=== PATIENT | male | born 1960 | race Caucasian/White ===

== ENCOUNTER 2020-08-20 08:45 | Emergency (ER) | payer OTHER, SELFPAY ==
[2020-08-20] VITALS (15 sets, daily range): BP systolic 140–195; BP diastolic 80–105; PULSE 74–88; RESP 15–22; TEMP 36.9; O2SAT 92–98; BMI 24.4
--- NOTE | 2020-08-20 09:07 | ED_ITS ---
HPI - Trauma General Chief Complaint: Fall Stated Complaint: fell at home last night/ poss stiches in head Time Seen by Provider: 08/20/20 09:06 Source: patient Mode of arrival: Ambulatory Limitations: no limitations History of Present Illness HPI narrative: This is a 60-year-old male who states that he had a fall last night. Patient states he got home from work. He states that he had a little bit of chest discomfort right before the episode. Patient states he did have any other symptoms prior to this. Patient is not sure if he tripped and fell, had a syncopal episode or other event. Patient states he does have a history of TIA and has been told that he had blocked vessels to his head but had collateral s of some sort allowing blood flow. Patient does have a history of coronary artery stents x3. 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 Patient states that he does have a cut on the top of his head, he noted that it was bleeding afterwards but did not think he had cut his head last night. He denies any headache currently. He denies any acute vision changes but has had chronic changes secondary to cataracts and is anticipated to have surgery for this. He denies any new speech changes. No numbness, tingling or weakness in his extremities prior to or after the event. No continued chest pain or pressure, no shortness of breath. No nausea or vomiting. He denies any bowel or bladder incontinence or other symptoms. Patient denies any midline neck pain but does have some muscle discomfort and denies any back pain. He does note that he has some bruising of his toes on his left foot. Patient is anticoagulated on Plavix secondary to prior TIA, he takes medication for hypertension and dyslipidemia. Denies any aspirin or other anticoagulants. Patient states no prior surgeries besides his cardiac stents. He denies any allergies to medications. Positive for tobacco, positive for alcohol daily usually less than 3 drinks. Patient states he did not have any alcohol last night prior to his fall. Occasional THC but no other illicit. Related Data Allergies Allergy/AdvReac Type Severity Reaction Status Date / Time No Known Drug Allergies Allergy Verified 08/20/20 09:09 Review of Systems Review of Systems ROS Unobtainable: All systems reviewed & are unremarkable except as noted in HPI and below Patient History Social History Smoking Status: Current every day smoker Smoking Status: Current every day smoker alcohol intake frequency: 0-2 drinks per day Substance Use Type: marijuana Exam Narrative Exam Narrative: GEN: Patient appears in mild distress. HEAD: Patient has a hematoma with laceration over the midline top of the scalp which appears to be 4-5 cm in length, no raccoon/Pisano sign. NECK: Nontender, painless range of motion, trachea midline Negative Nexus criteria, there is no mid line tenderness, distracting injury, altered mental status, neuro deficit, recent EtOH. EYES: PERRLA, EOMI ENT: External inspection normal, trachea is midline, TM's are normal no hemotypanum, Nares are clear, no septal hematoma, no dental or oral injury, airway is normal and with normal occlusion, No bony tenderness, no facial droop. RESP: Chest is nontender and has symmetric movement, no ecchymosis, breath sounds are normal no crackles, wheezes or rales CVS: Heart sounds are normal, no murmur noted, No JVD. ABG/GI: Nontender, soft, normal bowel sounds, no distention, no organomegaly, pelvic rock is negative NEURO: Oriented AOx3, neuro is grossly intact, sensation and motor is normal all 4 extremities moving, cranial nerves II through XII are intact, GCS is 15 PSYCH: Normal mood and affect SKIN: Intact, warm and dry, no crepitus and without decubitus. Patient does have bruising of his toes on the left foot with some mild swelling. Patient has mild bony tenderness of the toes. No bony tenderness of the foot itself. BACK: No CVA tenderness, no vertebral tenderness, no step-off's, no crepitus EXT: Atraumatic other than described above, hips are nontender, no pedal edema, normal color and temperature, normal range of motion of extremities with normal tendon exam, 2+ pulses in all four extremities. Patient ambulated in the department with a normal gait. Initial Vital Signs Initial Vital Signs: Vital Signs Temperature 98.4 F 08/20/20 09:03 Pulse Rate 87 08/20/20 09:03 Respiratory Rate 18 08/20/20 09:03 Blood Pressure 195/105 H 08/20/20 09:03 Pulse Oximetry 98 08/20/20 09:03 Procedures Laceration Repair Laceration 1: Site: scalp Size (cm): 4.5 Description: linear and irregular Depth: simple, single layer Local Anesthetic: lidocaine 1% Amount of anesthesia used (mL): 5 Pre-repair: wound explored, irrigated extensively and deep structures intact (galea intact.) Skin layer closed with: tamia (6) Scores GCS Torsten coma scale eye opening: Spontaneous Staley coma scale verbal response: Orientated Torsten coma scale motor response: Obey commands Torsten coma scale total score: 15 NIH Stroke Scale Level of Conciousness: Alert, keenly responsive Ask month/age: Answers both questions correctly. Open/close eyes, close hand: Performs both tasks correctly Best gaze horizontal: Normal Visual blackburn: No visual loss Facial palsy: Normal symetrical movement Left arm drift: No drift for full 10 sec Right arm drift: No drift for full 10 sec Left leg drift: No drift for full 5 sec Right leg drift: No drift for full 5 sec Limb ataxia: Absent Sensory on face/arms/legs: Normal, no sensory loss Best language: No aphasia, normal Dysarthria: Normal Extinction or inattention: No abnormality Total NIH Stroke scale score: 0 Course Orders Ordered: ED Orders 08/20/20 10:47 MR stroke Stat Discontinued Medications Lidocaine/Sodium Bicarbonate (Lido 1%/Sod Bicarb 8.4% (10ml) 10 Ml Syringe) 10 ml INJ NOW ONE Stop: 08/20/20 09:27 Last Admin: 08/20/20 10:19 Dose: 10 ml Documented by: [email or web address] Vital Signs Vital signs: Vital Signs - 8 hr 08/20/20 11:00 08/20/20 12:26 08/20/20 12:30 Pulse Rate 84 84 78 Respiratory Rate 22 17 Blood Pressure 157/87 H 140/83 Pulse Oximetry 95 95 95 08/20/20 12:31 08/20/20 13:00 08/20/20 13:30 Pulse Rate 81 78 74 Respiratory Rate 16 16 15 Blood Pressure 140/83 Pulse Oximetry 94 93 93 08/20/20 14:00 08/20/20 14:30 08/20/20 14:57 Pulse Rate 77 78 80 Respiratory Rate 16 22 Blood Pressure 177/96 H Pulse Oximetry 93 92 08/20/20 15:00 Pulse Rate 88 Respiratory Rate 16 Blood Pressure 140/83 Pulse Oximetry 92 MDM - Trauma Lab Data Attestation: I reviewed the patient's lab results. Result diagrams: 08/20/20 06:20 08/20/20 09:20 Labs: Lab Results 08/20/20 08/20/20 08/20/20 Range/Units 06:20 09:20 09:20 WBC 11.3 H (4.5-11.0) X10^3/uL RBC 4.64 (4.5-5.9) X10^6/uL Hgb 14.7 (13.5-17.5) g/dL Hct 42.6 (41-53) % MCV 91.9 (80-100) fL MCH 31.6 (26-34) PG MCHC 34.4 (30-36) % RDW 15.4 H (11.6-14.8) % Plt Count 367 (150-400) X10^3/uL Neut % (Auto) 74.9 (50-75) % Lymph % (Auto) 14.5 L (25-40) % [place] % (Auto) 9.8 (3-14) % Eos % (Auto) 0.1 L (2-4) % Baso % (Auto) 0.7 (0-2) % Neut # (Auto) 8500 H (2232-9321) /uL Lymph # (Auto) 1600 (8846-1042) /uL [place] # (Auto) 1100 H (0-900) /uL Eos # (Auto) 0 (0-450) /uL Baso # (Auto) 100 (0-100) /uL PT 11.3 (10.1-12.7) SECONDS INR 1.0 (0.9-1.3) APTT 37 H (26.4-36.2) SECONDS Sodium 129 L (137-145) mmol/L Potassium 4.0 (3.4-5.1) mmol/L Chloride 91 L (98-107) mmol/L Carbon Dioxide 30 (22-32) mmol/L BUN 8 L (9-20) mg/dL Creatinine 0.56 L (0.66-1.25) mg/dL Estimated GFR > 60.0 (>60) mL/min BUN/Creatinine Ratio 14.3 (6-22) Glucose 138 H (80-110) mg/dL Calcium 10.0 (8.4-10.2) mg/dL Total Bilirubin 0.8 (0.2-1.3) mg/dL AST 55 (17-59) IU/L ALT 26 (<50) IU/L Alkaline Phosphatase 83 (38-126) U/L Total Creatine Kinase 401 H (55-170) U/L CK-MB (CK-2) 6.52 H (<2.37) ng/mL CK-MB (CK-2) Rel Index 1.6 (1.5-5.0) % Troponin I < 0.012 (0.01-0.034) ng/mL Total Protein 8.1 (6.3-8.2) g/dL Albumin 4.7 (3.5-5.0) g/dL Globulin 3.4 (1.7-4.1) g/dL Albumin/Globulin Ratio 1.4 (1.0-2.8) Lipase 67 (23-300) U/L Ethyl Alcohol < 10 ( - 10) mg/dL Blood Type Antibody Screen 08/20/20 Range/Units 09:30 WBC (4.5-11.0) X10^3/uL RBC (4.5-5.9) X10^6/uL Hgb (13.5-17.5) g/dL Hct (41-53) % MCV (80-100) fL MCH (26-34) PG MCHC (30-36) % RDW (11.6-14.8) % Plt Count (150-400) X10^3/uL Neut % (Auto) (50-75) % Lymph % (Auto) (25-40) % [place] % (Auto) (3-14) % Eos % (Auto) (2-4) % Baso % (Auto) (0-2) % Neut # (Auto) (5229-4759) /uL Lymph # (Auto) (5464-6402) /uL [place] # (Auto) (0-900) /uL Eos # (Auto) (0-450) /uL Baso # (Auto) (0-100) /uL PT (10.1-12.7) SECONDS INR (0.9-1.3) APTT (26.4-36.2) SECONDS Sodium (137-145) mmol/L Potassium (3.4-5.1) mmol/L Chloride (98-107) mmol/L Carbon Dioxide (22-32) mmol/L BUN (9-20) mg/dL Creatinine (0.66-1.25) mg/dL Estimated GFR (>60) mL/min BUN/Creatinine Ratio (6-22) Glucose (80-110) mg/dL Calcium (8.4-10.2) mg/dL Total Bilirubin (0.2-1.3) mg/dL AST (17-59) IU/L ALT (<50) IU/L Alkaline Phosphatase (38-126) U/L Total Creatine Kinase (55-170) U/L CK-MB (CK-2) (<2.37) ng/mL CK-MB (CK-2) Rel Index (1.5-5.0) % Troponin I (0.01-0.034) ng/mL Total Protein (6.3-8.2) g/dL Albumin (3.5-5.0) g/dL Globulin (1.7-4.1) g/dL Albumin/Globulin Ratio (1.0-2.8) Lipase (23-300) U/L Ethyl Alcohol ( - 10) mg/dL Blood Type O Positive Antibody Screen Negative Urine Dip Bedside Urine Glucose Negative Bedside Urine Bilirubin - Negative Bedside Urine Ketone - Negative Urine Specific [place] 1.010 Bedside Urine Occult Blood - Negative Bedside Urine pH 6.5 Bedside Urine Protein - Negative Bedside Urine Urobilinogen - Negative Bedside Urine Nitrite - Negative Bedside Urine Leukocytes - Negative Esterase Imaging Data CT scan - head: Radiologist's Impression: [address] [id number] Scan ReportSigned Patient: Russell Gordon BMR#: [id number]: 8Acct:[id number]/Sex: 60 / MDate of Service: 08/20/20Loc: EDAccession Number: [id number] Procedure: CT head/brain wo con Ordering Provider: Milli Rubin D.O. PROCEDURE: CT HEAD/BRAIN WO CON INDICATIONS: Trauma, fall vs syncope vs other. Hx prior TIA/CVA TECHNIQUE: Noncontrast 4.5 mm thick angled axial sections acquired from the foramen magnum to the vertex, with coronal and sagittal reformats. For radiation dose reduction, the following was used: automated exposure control, adjustment of mA and/or kV according to patient size. COMPARISON: None. FINDINGS: Image quality: Excellent. CSF spaces: Basal cisterns are patent. No extra-axial fluid collections. The ventricles are symmetric in size and shape. Brain: No intracranial bleeds or masses. Age indeterminate right cerebellar cortical infarct, possibly subacute or chronic. Old left thalamic lacunar infarct. There is cerebral volume loss for age, with resultant ventricular and sulcal prominence. There are periventricular and deep white matter chronic small vessel ischemic changes. There is intracranial internal carotid artery atherosclerosis. Skull and face: Calvarium and visualized facial bones appear intact, without suspicious lesions. Sinuses: Visualized sinuses and mastoids are clear. IMPRESSION: 1. Age indeterminate right cerebellar cortical infarct, possibly subacute or chronic. 2. Old left thalamic infarct. Comment: Consider brain MRI if suspect acute infarct. Dictated by: Alvaro Raymond M.D. on 08/20/2020 at 9:02 Approved by: Alvaro Raymond M.D. on 08/20/2020 at 9:04 Chest x-ray: Radiologist's Impression: [address] [id number] ReportSigned Patient: Russell Gordon BMR#: [id number]: 1960cct:[id number]/Sex: 60 / MDate of Service: 08/20/20Loc: EDAccession Number: [id number] Procedure: XR chest 1V Ordering Provider: Milli Rubin D.O. PROCEDURE: XR CHEST 1V INDICATIONS: Trauma, fall vs syncope vs other. Hx prior TIA/CVA TECHNIQUE: One view of the chest was acquired. COMPARISON: None. FINDINGS: Surgical changes and devices: None. Lungs and pleura: Lungs are clear. No pleural effusions or pneumothorax. Mediastinum: Mediastinal contours appear normal. Heart size is normal. Bones and chest wall: No suspicious bony lesions. Overlying soft tissues appear unremarkable. IMPRESSION: No evidence acute pulmonary process. Dictated by: Alvaro Raymond M.D. on 08/20/2020 at 8:59 Approved by: Alvaro Raymond M.D. on 08/20/2020 at 9:00 Extremity x-ray #1: Radiologist's Impression: EvanRussell Sharon 60 M [address] [id number] ReportSigned Patient: Russell Gordon BMR#: [id number]: [id number]:[id number]/Sex: 60 / MDate of Service: 08/20/20Loc: EDAccession Number: [id number] Procedure: XR foot LT min 3V Ordering Provider: Milli Rubin D.O. PROCEDURE: XR FOOT LT MIN 3V INDICATIONS: bruising toes s/p fall TECHNIQUE: 3 views of the foot were acquired. COMPARISON: None. FINDINGS: Bones: Question distal phalanx great toe fracture. Question transverse base of proximal phalanx small toe fracture. Recommend correlation with physical exam. No other fractures or dislocations identified. No suspicious bony lesions. Soft tissues: No tibiotalar joint effusion. Achilles tendon appears normal. IMPRESSION: Question distal phalanx great toe fracture. Question transverse base of proximal phalanx small toe fracture. Recommend correlation with physical exam. Dictated by: Alvaro Raymond M.D. on 08/20/2020 at 9:00 Approved by: Alvaro Raymond M.D. on 08/20/2020 at 9:01 MRI stroke: Radiologist's Impression: Russell Gordon 60 M [address] [id number] Resonance ReportSigned Patient: Russell Gordon BMR#: [id number]: [id number]/Sex: 60 / MDate of Service: 08/20/20Loc: EDAccession Number: [id number] Procedure: MR stroke Ordering Provider: Milli Rubin D.O. PROCEDURE: MR STROKE Pre- and post-contrast brain MRI, non-contrast brain MR angiogram, pre- and postcontrast neck MR angiogram INDICATIONS: ? cva TECHNIQUE: Brain: Noncontrast axial T1 spin echo, axial T2 fast spin echo, sagittal and axial FLAIR, coronal T2 fast spin echo, axial gradient echo, axial diffusion and ADC through the brain. After the administration of contrast, axial 3D VIBE of the cranial vasculature and brain. Brain MRA: Non-contrast 3-D time of flight MR angiogram, with multiple ewtureq-ypvrolbxn-tdzvrfckeo (MIP) reformats performed. Neck MRA: Axial and sagittal TruFISP through the neck. Coronal dynamic MR angiogram during administration of contrast in the arterial and venous phases, with 3- dimenstional xbmdqti-hwkssivim-lqqrmnhiri (MIP) reformats constructed from subtraction images. COMPARISON: [facility], CT, CT HEAD/BRAIN WO CON, 08/20/2020, 9:30. FINDINGS: Image quality: Excellent. BRAIN: CSF spaces: Ventricles are normal in size and shape. Basal cisterns are patent. No extra-axial fluid collections. Brain: No intracranial bleeds or mass effects. Anderson-white matter interface is normal. Diffusion weighted images show no acute ischemic insults. Old focal right cerebellar infarct. Brainstem appears normal. Normal intravascular flow voids are present. No abnormal intracranial enhancement. Skull and face: Calvarial marrow signal is normal. Orbits appear normal. Sinuses: Right maxillary sinus air-fluid level and mucosal thickening. Patchy bilateral mastoid opacification. BRAIN MR ANGIOGRAM: Anterior circulation: Intracranial internal carotid arteries are normal in size and enhancement. The flow within the paired anterior cerebral arteries is normal and symmetric. The flow within the middle cerebral arteries is normal and symmetric. The anterior communicating artery is seen. Bilateral normal variant origin of the posterior cerebral arteries off the anterior circulation. No stenoses, occlusions, or aneurysms. Posterior circulation: The vertebral arteries are diffusely diminutive bilaterally, with the right vertebral artery being dominant. The basilar artery is quite diminutive. NECK MR ANGIOGRAM: Carotids: Great vessels demonstrate a conventional anatomy as they arise from the aortic arch. The origins of the common carotid arteries appear patent. The calibers and courses of both common carotid arteries are normal. The bifurcation regions appear normal bilaterally. The internal carotid arteries demonstrate normal course and caliber. Posterior circulation: The vertebral arteries are diffusely diminutive bilaterally, with the right vertebral artery being dominant. The basilar artery is quite diminutive. Miscellaneous: Subclavian arteries appear patent. Pre-contrast images through the neck show no soft tissue abnormalities. IMPRESSION: BRAIN MRI: 1. Old right cerebellar infarct. 2. No evidence of acute stroke, hemorrhage, or mass. 3. Acute on chronic right maxillary sinusitis. 4. Bilateral patchy mastoid opacification. Trip recommend correlation for signs and symptoms of mastoiditis. BRAIN MR ANGIOGRAM: Bilateral origins of the posterior cerebral arteries off the anterior circulation. The vertebral arteries are diffusely diminutive and combined to form a diminutive basilar artery. This can be seen patients with origin of the posterior cerebral arteries. NECK MR ANGIOGRAM: Widely patent carotids. Diffusely diminutive vertebral juan efren. Dictated by: Alvaro Raymond M.D. on 08/20/2020 at 11:33 Approved by: Alvaro Raymond M.D. on 08/20/2020 at 11:44 ECG Data Attestation: I personally reviewed and interpreted this ECG as follows: Prior ECG tracings: not available for review Interpretation: Sinus rhythm rate 80 P are 178 QRS 84 and QTC of 438. No acute ST elevation depression appreciated. Patient does have a Q-wave in lead 3 with no priors for comparison MDM Narrative Medical decision making narrative: Will this is a 60-year-old male who had either fall, possible single episode or other episode last night. Patient states he hit his head it was bleeding but he did come and talk today when he realized there was a large cut on his scalp. patient states he has been told he had had a stroke in the and had changes on his CT imaging in the past. He did not appreciate any symptoms other than some mild chest discomfort immediately before the event. Patient had imaging and labs here which reflected possible subacute stroke, or able to obtain MRI which was negative. Patient's NIH is 0. patient's patient has not had any cardiac arrhythmias, troponin is negative with with no other acute changes that would warrant hospitalization. We did discuss we would likely benefit from having a Holter monitor ZIO patch. Patient and I discussed return precautions and he felt comfortable with this plan. Scalp laceration was repaired. patient also noted to likely have fracture of his 1st and 5th toe on his foot. He was given ortho boot and referral for Orthopedic surgery. Discharge Plan Departure Patient Disposition: Home Clinical Impression: Laceration of scalp, Contusion, toes, Hyponatremia Instructions: DI for Toe Fracture, DI for Hyponatremia Activity Restrictions/Additional Instructions: Follow-up with your physician for recheck in the next week for staple removal as well as follow-up for your likely syncopal episode. Your physician may wish to set you up for holter monitor or ziopatch and recheck your sodium this week. Your imaging today including your brain MRI does not show any new strokes or acute changes. there is some chronic maxillary sinusitis to unlikely cause of her symptoms Your sodium today is also low at 129, this may have contributed to your symptoms and I would follow-up with her physician to have it rechecked. x-ray imaging is also suspicious for fracture of the 1st toe and 5th toe on your foot. I would recommend using ortho shoe. Referrals given orthopedic surgery although if you prefer he can start with your primary care. Wound Care: Keep wound(s) clean and dry. Wash daily with soap and water only. Do not use over the counter products (alcohol or peroxide)on the wounds unless instructed by a physician. If wound condition worsens (increased/expanding redness, developing fluid blisters, or worsening pain), either contact your doctor for an urgent re- assessment , or return to the Emergency Department. Return to the Emergency Department for any new or worsening symptoms. Return to the ED, urgent care, or vist a primary care doctor for removal or suture or tamia in 7-10 days Return if fever greater than 100.4 Fahrenheit, increased swelling, increasing pain or worsening symptoms such as increased discharge or spreading redness, severe headaches, passing out, new chest pain, shortness of breath, persistent vomiting, new numbness, tingling or weakness to extremities, difficulty with ambulation, new neck or back pain or other new or concerning symptoms. Referrals: Jaspal Luis MD [Physician] -
[2020-08-20 09:39] LABS: Prothrombin Time 11.3 SECONDS (10.1-12.7)
[2020-08-20 09:40] LABS: Add Manual Diff / Slide Review NO; Basophils Absolute Auto 100 /uL (0-100); Basophils Percent Auto 0.7 % (0-2); Eosinophils Absolute Auto 0 /uL (0-450); Eosinophils Percent Auto 0.1 % (2-4); Hematocrit 42.6 % (41-53); Hemoglobin 14.7 g/dL (13.5-17.5); Lymphocytes Absolute Auto 1600 /uL (1100-4500); Lymphocytes Percent Auto 14.5 % (25-40); Mean Corpuscular HGB Conc 34.4 % (30-36); Mean Corpuscular Hemoglobin 31.6 PG (26-34); Mean Corpuscular Volume 91.9 fL (80-100); Monocytes Absolute Auto 1100 /uL (0-900); Monocytes Percent Auto 9.8 % (3-14); Neutrophils Absolute Auto 8500 /uL (1500-7000); Neutrophils Percent Auto 74.9 % (50-75); Platelet Count 367 X10^3/uL (150-400); Red Blood Cell Count 4.64 X10^6/uL (4.5-5.9); Red Cell Distribution Width 15.4 % (11.6-14.8); White Blood Cell Count 11.3 X10^3/uL (4.5-11.0)
[2020-08-20 09:42] LABS: PTT Partial Thromboplastin Tim 37 SECONDS (26.4-36.2)
[2020-08-20 09:50] LABS: Alanine Aminotransferase 26 IU/L (<50); Albumin 4.7 g/dL (3.5-5.0); Albumin Globulin Ratio 1.4 (1.0-2.8); Alkaline Phosphatase 83 U/L (38-126); Aspartate Aminotransferase 55 IU/L (17-59); BUN Creatinine Ratio 14.3 (6-22); Bilirubin Total 0.8 mg/dL (0.2-1.3); Blood Urea Nitrogen 8 mg/dL (9-20); Carbon Dioxide 30 mmol/L (22-32); Chloride 91 mmol/L (98-107); Creatine Kinase 401 U/L (55-170); Estimated Glomerular Filt Rate > 60.0 mL/min (>60); Ethanol (ETOH) < 10 mg/dL; Globulin 3.4 g/dL (1.7-4.1); Glucose 138 mg/dL (80-110); HEMOLYSIS < 15 (0-50); Lipase 67 U/L (23-300); Sodium 129 mmol/L (137-145); Total Protein 8.1 g/dL (6.3-8.2)
[2020-08-20 10:01] LABS: Troponin I < 0.012 ng/mL (0.01-0.034)
[2020-08-20 10:04] LABS: CKMB % Relative Index 1.6 % (1.5-5.0); Creatine Kinase MB 6.52 ng/mL (<2.37)
[2020-08-20] MEDS: LIDO 1%/SOD BICARB 8.4% (10ML) 10 ML SYRINGE INJ (10:19)
--- NOTE | 2020-08-20 10:47 | DI.MRI.S_ITS ---
PROCEDURE: MR STROKE Pre- and post-contrast brain MRI, non-contrast brain MR angiogram, pre- and postcontrast neck MR angiogram INDICATIONS: ? cva TECHNIQUE: Brain: Noncontrast axial T1 spin echo, axial T2 fast spin echo, sagittal and axial FLAIR, coronal T2 fast spin echo, axial gradient echo, axial diffusion and ADC through the brain. After the administration of contrast, axial 3D VIBE of the cranial vasculature and brain. Brain MRA: Non-contrast 3-D time of flight MR angiogram, with multiple trrbdau-swxkgtzul-gmfvjhjvuu (MIP) reformats performed. Neck MRA: Axial and sagittal TruFISP through the neck. Coronal dynamic MR angiogram during administration of contrast in the arterial and venous phases, with 3-dimenstional pqefsvw-hponqurht-tdpchawccq (MIP) reformats constructed from subtraction images. COMPARISON: [facility], CT, CT HEAD/BRAIN WO CON, 08/20/2020, 9:30. FINDINGS: Image quality: Excellent. BRAIN: CSF spaces: Ventricles are normal in size and shape. Basal cisterns are patent. No extra-axial fluid collections. Brain: No intracranial bleeds or mass effects. Anderson-white matter interface is normal. Diffusion weighted images show no acute ischemic insults. Old focal right cerebellar infarct. Brainstem appears normal. Normal intravascular flow voids are present. No abnormal intracranial enhancement. Skull and face: Calvarial marrow signal is normal. Orbits appear normal. Sinuses: Right maxillary sinus air-fluid level and mucosal thickening. Patchy bilateral mastoid opacification. BRAIN MR ANGIOGRAM: Anterior circulation: Intracranial internal carotid arteries are normal in size and enhancement. The flow within the paired anterior cerebral arteries is normal and symmetric. The flow within the middle cerebral arteries is normal and symmetric. The anterior communicating artery is seen. Bilateral normal variant origin of the posterior cerebral arteries off the anterior circulation. No stenoses, occlusions, or aneurysms. Posterior circulation: The vertebral arteries are diffusely diminutive bilaterally, with the right vertebral artery being dominant. The basilar artery is quite diminutive. NECK MR ANGIOGRAM: Carotids: Great vessels demonstrate a conventional anatomy as they arise from the aortic arch. The origins of the common carotid arteries appear patent. The calibers and courses of both common carotid arteries are normal. The bifurcation regions appear normal bilaterally. The internal carotid arteries demonstrate normal course and caliber. Posterior circulation: The vertebral arteries are diffusely diminutive bilaterally, with the right vertebral artery being dominant. The basilar artery is quite diminutive. Miscellaneous: Subclavian arteries appear patent. Pre-contrast images through the neck show no soft tissue abnormalities. IMPRESSION: BRAIN MRI: 1. Old right cerebellar infarct. 2. No evidence of acute stroke, hemorrhage, or mass. 3. Acute on chronic right maxillary sinusitis. 4. Bilateral patchy mastoid opacification. Trip recommend correlation for signs and symptoms of mastoiditis. BRAIN MR ANGIOGRAM: Bilateral origins of the posterior cerebral arteries off the anterior circulation. The vertebral arteries are diffusely diminutive and combined to form a diminutive basilar artery. This can be seen patients with origin of the posterior cerebral arteries. NECK MR ANGIOGRAM: Widely patent carotids. Diffusely diminutive vertebral arteries. Dictated by: Alvaro Raymond M.D. on 08/20/2020 at 11:33 Approved by: Alvaro Raymond M.D. on 08/20/2020 at 11:44
== END 2020-08-20 15:31 | disposition home or self-care (01) ==
PROVIDERS: Emergency Provider Emergency Medicine
DX: S01.01XA Laceration without foreign body of scalp, initial encounter (principal); S90.122A Contusion of left lesser toe(s) without damage to nail, initial encounter; E87.1 Hypo-osmolality and hyponatremia; R07.9 Chest pain, unspecified; W19.XXXA Unspecified fall, initial encounter
CPT/HCPCS: 12002; 36415; 70450; 70548; 70553; 71045; 73630; 80053; 80320; 81003; 82550; 82553; 83690; 84484; 85025; 85610; 85730; 86850; 86900; 86901; 93005; 93010; 99284; 99285; A9579

== ENCOUNTER 2023-10-20 19:33 | Emergency (ER) | payer OTHER, SELFPAY ==
[2023-10-20] VITALS (14 sets, daily range): BP systolic 132–167; BP diastolic 68–82; PULSE 71–80; RESP 12–25; TEMP 36.7; O2SAT 87–98; BMI 25.1
--- NOTE | 2023-10-20 19:37 | ED.FALL ---
HPI - Fall General Chief Complaint: Fall Stated Complaint: fall 4ft Time Seen by Provider: 10/20/23 19:36 History of Present Illness HPI Narrative: 63-year-old male presents for evaluation of fall with loss of consciousness and right wrist injury. Patient had several alcoholic beverages this evening and tripped down the stairs. Positive LOC on scene of proximally 1 minute per bystanders. Patient was placed in inflatable C-collar by medics and transported for further evaluation. On arrival patient denies complaints other than pain in his right wrist. Denies injury or pain anywhere else. Related Data Previous Rx's Medication Instructions Recorded hydrocodone 5 mg-acetaminophen 325 1 tab PO Q8H PRN pain #10 tabs 10/20/23 mg tablet Allergies Allergy/AdvReac Type Severity Reaction Status Date / Time No Known Drug Allergies Allergy Verified 08/20/20 09:09 Patient History Social History Smoking Status: Current every day smoker Smoking Status: Current every day smoker alcohol intake frequency: 0-2 drinks per day Substance Use Type: marijuana Exam Initial Vital Signs Initial Vital Signs: Vital Signs Temperature 98.1 F 10/20/23 19:38 Pulse Rate 79 10/20/23 19:38 Respiratory Rate 23 10/20/23 19:38 Blood Pressure 141/75 H 10/20/23 19:38 Pulse Oximetry 98 10/20/23 19:38 Oxygen Delivery Method Room Air 10/20/23 19:38 Const: Awake, alert, in C-collar, mildly intoxicated Cardiac: regular rate, regular rhythm RESP: unlabored, clear bilaterally, no wheezing GI: Soft, nontender, nondistended MSK: Swelling R wrist, palpable pulses, sensation intact/equal. No midline back pain, no other bony tenderness Skin: Warm, Dry, 2cm laceration R forehead wtih surrounding abrasion Neuro: AO x3, CN II-XII grossly intact, moves all extremities Procedures Laceration Repair Laceration 1: Site: face Side (If applicable): right Size (cm): 2 Description: linear Depth: simple, single layer Local Anesthetic: lidocaine 1% and with epi Amount of anesthesia used (mL): 3 Pre-repair: wound explored and irrigated extensively Skin layer closed with: nylon Skin layer suture size: 5-0 Number of sutures: 3 Technique: simple, interrupted Course Orders Ordered: Discontinued Medications Folic Acid (Folic Acid 1 Mg Tablet) 1 mg PO NOW ONE Stop: 10/20/23 21:04 Last Admin: 10/20/23 21:11 Dose: 1 mg Documented By: Sodium Chloride (Normal Saline 0.9%) 1,000 mls @ 1,000 mls/hr IV BOLUS ONE Stop: 10/20/23 22:02 Last Infusion: 10/20/23 22:30 Dose: Infused Documented By: Admin: 10/20/23 21:10 Dose: 1,000 mls/hr Documented By: Thiamine HCl 200 mg/ Sodium (Chloride) 102 mls @ 408 mls/hr IV NOW ONE Stop: 10/20/23 21:04 Last Infusion: 10/20/23 21:30 Dose: Infused Documented By: Admin: 10/20/23 21:10 Dose: 408 mls/hr Documented By: Lidocaine HCl (Lidocaine 1% 20 Ml) 20 ml INJ INTRA-OP ONE Stop: 10/20/23 19:59 Last Admin: 10/20/23 20:49 Dose: 20 ml Documented By: SILVINA Vital Signs Vital signs: Vital Signs - 8 hr 10/20/23 19:38 10/20/23 19:53 10/20/23 20:00 Temperature 98.1 F Pulse Rate 79 76 75 Respiratory Rate 23 19 19 Blood Pressure 141/75 H 141/75 H 132/74 Pulse Oximetry 98 91 94 Oxygen Delivery Method Room Air Room Air Oxygen Flow Rate 10/20/23 20:15 10/20/23 20:20 10/20/23 20:25 Temperature Pulse Rate 75 74 72 Respiratory Rate 16 12 15 Blood Pressure Pulse Oximetry 87 L 95 Oxygen Delivery Method Room Air Nasal Cannula Oxygen Flow Rate 2 10/20/23 20:30 10/20/23 20:30 10/20/23 20:35 Temperature Pulse Rate 72 72 Respiratory Rate 15 15 Blood Pressure 136/73 Pulse Oximetry 91 92 Oxygen Delivery Method Oxygen Flow Rate 10/20/23 20:40 Temperature Pulse Rate 71 Respiratory Rate 15 Blood Pressure Pulse Oximetry 91 Oxygen Delivery Method Oxygen Flow Rate MDM - Fall Differential Diagnosis Differential diagnosis: Likely syncope, concussion with loss of consciousness and concussion without loss of consciousness Lab Data 10/20/23 21:05 10/20/23 21:05 Labs: Lab Results 10/20/23 Range/Units 21:05 WBC 10.4 (4.5-11.0) X10^3/uL RBC 4.13 L (4.5-5.9) X10^6/uL Hgb 13.2 L (13.5-17.5) g/dL Hct 37.4 L (41-53) % MCV 90.5 (80-100) fL MCH 31.9 (26-34) PG MCHC 35.3 (30-36) % RDW 15.5 H (11.6-14.8) % Plt Count 344 (150-400) X10^3/uL Neut % (Auto) 78.2 H (50-75) % Lymph % (Auto) 12.2 L (25-40) % [place] % (Auto) 7.3 (3-14) % Eos % (Auto) 1.4 L (2-4) % Baso % (Auto) 0.9 (0-2) % Neut # (Auto) 8100 H (1820-4551) /uL Lymph # (Auto) 1300 (9446-5540) /uL [place] # (Auto) 800 (0-900) /uL Eos # (Auto) 100 (0-450) /uL Baso # (Auto) 100 (0-100) /uL Sodium 126 L (137-145) mmol/L Potassium 3.9 (3.4-5.1) mmol/L Chloride 90 L (98-107) mmol/L Carbon Dioxide 24 (22-32) mmol/L BUN 6 L (9-20) mg/dL Creatinine 0.61 L (0.66-1.25) mg/dL Estimated GFR > 60 (>60) mL/min BUN/Creatinine Ratio 9.8 (6-22) Glucose 102 (80-110) mg/dL Calcium 8.9 (8.4-10.2) mg/dL Total Bilirubin 0.5 (0.2-1.3) mg/dL AST 92 H (17-59) IU/L ALT 39 (<50) IU/L Alkaline Phosphatase 62 (38-126) U/L Total Creatine Kinase 321 H (55-170) U/L Troponin I < 0.012 (0.01-0.034) ng/mL Total Protein 6.9 (6.3-8.2) g/dL Albumin 4.3 (3.5-5.0) g/dL Globulin 2.6 (1.7-4.1) g/dL Albumin/Globulin Ratio 1.7 (1.0-2.8) Ethyl Alcohol 128 H ( - 10) mg/dL Imaging Data CT - cervical spine: Radiologist's Impression: PROCEDURE: CT CERVICAL SPINE WO CON INDICATIONS: FALL OFF PORCH/ETOH/HEAD INJ TECHNIQUE: Noncontrast 3 mm thick sections acquired from the skull base to the T4 level. Sagittal and coronal reformats were then constructed. For radiation dose reduction, the following was used: automated exposure control, adjustment of mA and/or kV according to patient size. COMPARISON: [facility], CT, CT HEAD/BRAIN WO CON, 10/20/2023, 19:48. FINDINGS: Image quality: This examination is somewhat limited by quantum mottle artifact. Bones: No fractures or dislocations. Visualized superior ribs are intact. Soft tissues: Prevertebral soft tissues are normal in thickness. No paravertebral hematomas. No apical pneumothoraces. Atherosclerotic calcification is noted. Mild dependent ground-glass opacity can be seen. Please consider mild pulmonary edema versus atelectasis. IMPRESSION: No displaced fracture or traumatic subluxation. Dictated by: Fernando Alexander M.D. on 10/20/2023 at 19:00 Approved by: Fernando Alexander M.D. on 10/20/2023 at 19:03 CT scan - head: Radiologist's Impression: PROCEDURE: CT HEAD/BRAIN WO CON INDICATIONS: FALL OFF PORCH/ETOH/HEAD INJ TECHNIQUE: Noncontrast 4.5 mm thick angled axial sections acquired from the foramen magnum to the vertex, with coronal and sagittal reformats. For radiation dose reduction, the following was used: automated exposure control, adjustment of mA and/or kV according to patient size. COMPARISON: [facility], CT, CT HEAD/BRAIN WO CON, 08/20/2020, 9:30. [facility], CT, CT CERVICAL SPINE WO CON, 10/20/2023, 19:48. [facility], MR, MR STROKE, 08/20/2020, 11:23. FINDINGS: Image quality: This examination is limited by involuntary motion artifact. Mild streak artifact can be seen through the skull base. CSF spaces: Basal cisterns are patent. No extra-axial fluid collections. The ventricles are symmetric in size and shape. Brain: No intracranial bleeds or masses. There is cerebral volume loss for age, with resultant ventricular and sulcal prominence. There are periventricular and deep white matter chronic small vessel ischemic changes. There is a remote infarction involving the inferior right cerebellum. There is intracranial internal carotid artery atherosclerosis. Skull and face: Calvarium and visualized facial bones appear intact, without suspicious lesions. Sinuses: There is moderate to prominent right maxillary sinus thickening moderate left maxillary sinus mucosal thickening. Milder mucosal thickening can be seen elsewhere within the paranasal sinuses. A mild degree of right mastoid air cell fluid is seen. IMPRESSION: No acute intracranial hemorrhage is seen. No acute intracranial process is seen. Remote infarction within the inferior right cerebellum, stable. Additional findings: Paranasal sinus disease, with right mastoid air cell fluid Dictated by: Fernando Alexander M.D. on 10/20/2023 at 19:08 Approved by: Fernando Alexander M.D. on 10/20/2023 at 19:10 Extremity x-ray #1: Radiologist's Impression: PROCEDURE: XR WRIST RT MIN 3V INDICATIONS: FALL 4 FT, WRIST DEFORMITY TECHNIQUE: 4 views of the wrist were acquired. COMPARISON: None. FINDINGS: Bones: Intra-articular, displaced fracture of the radial styloid. Mildly displaced fracture of the ulnar styloid. Soft tissues: No suspicious soft tissue calcifications. IMPRESSION: Intra-articular radial styloid fracture. Mildly displaced fracture of the ulnar styloid. Dictated by: Tyrel Beltran M.D. on 10/20/2023 at 19:59 Approved by: Tyrel Beltran M.D. on 10/20/2023 at 19:59 ECG Data Interpretation: Normal sinus rhythm at 76 beats per minute. Normal FL, no ST T wave changes, no STEMI, QTC 445 MDM Narrative Medical decision making narrative: Fall down several steps with head injury and loss of consciousness. Swelling noted to right wrist, concern for fracture. Neurovascularly intact, patient denies pain anywhere else and no other injuries other than the wrist swelling and right eyebrow laceration are evident on exam. CT brain and C-spine ordered since patient does have alcohol on board, x-ray imaging of wrist ordered. CT brain negative for acute findings. X-ray of the wrist shows patient was radius fracture. Son who does not live with the patient has now arrived at bedside. There appears to be a disconnect between patient's telling of events and son's concerns. Son is very distraught at the patient's condition and repeatedly stating ?you have to get out of that house?. Patient states that he is fine and isn't worried about his living situation. Son is concerned that patient is passing out leading to his falls. Son states that patient was closed retiring in he feels like he was being overworked by his job. Patient states that he has tripped and fallen and denies passing out. Out of precaution labs and EKG ordered for assessment. IV thiamine and folic acid also to be ordered. Laboratory work is reviewed, no significant abnormalities identified. Troponin undetectable, EKG normal sinus rhythm without arrhythmias or other concerning findings. Alcohol level elevated, expected given patient's report of multiple alcoholic beverages earlier today. Forehead wound repaired per procedure note. Due to the relatively little displacement of the fracture no manipulation was attempted and he was placed in sugar-tong splint. Wound care instructions discussed at bedside. Patient counseled on the importance of orthopedic follow up as there is a chance that he will need Surgery in the future. Pain medication sent to pharmacy of choice. Patient discharged to the care of his son in stable condition Discharge Plan Departure Patient Disposition: Home Clinical Impression: Right wrist fracture, Alcohol intoxication, Fall from stairs Instructions: DI for Wrist Fracture, DI for Laceration Repair Activity Restrictions/Additional Instructions: Your laboratory work today showed that you have a mildly low sodium count, however this was seen as far back as 2020, so this is likely chronic for you. Your other blood work was normal. You have a fracture of your right wrist. The CT of your brain in your neck were normal and without fracture or bleed. Make sure to follow up with Orthopedic surgery, as you may need surgery on your wrist. Tylenol and ibuprofen can be used for pain at home. A short course of pain medication has also been sent to the [facility] in [place]. This may cause drowsiness so do not take this medication with alcohol or before driving or otherwise operating heavy machinery. It may cause constipation, so take a daily stool softener with this medication. Prescriptions: New hydrocodone-acetaminophen 5-325 mg tablet 1 tab PO Q8H PRN (Reason: pain) Qty: 10 0RF Referrals: Miscellaneous,DoctorMD [Primary Care Provider] - Dylon Woodard MD [Physician] - Stand Alone Forms: Patient Portal/API
[2023-10-20] MEDS: LIDOCAINE 1% 20 ML INJ (20:49)
--- NOTE | 2023-10-20 20:52 | PC.NURSE ---
C Collar removed by Dr Mcdonald at 2044
[2023-10-20] MEDS: SODIUM CHLORIDE 0.9% 1,000 ML 1000 ML IV (21:10)
[2023-10-20] MEDS: THIAMINE 200 MG in SODIUM CHLORIDE 0.9% 100 ML 408 MG IV (21:10)
[2023-10-20] MEDS: FOLIC ACID 1 MG TABLET PO (21:11)
[2023-10-20 21:14] LABS: Add Manual Diff / Slide Review NO; Basophils Absolute Auto 100 /uL (0-100); Basophils Percent Auto 0.9 % (0-2); Eosinophils Absolute Auto 100 /uL (0-450); Eosinophils Percent Auto 1.4 % (2-4); Hematocrit 37.4 % (41-53); Hemoglobin 13.2 g/dL (13.5-17.5); Lymphocytes Absolute Auto 1300 /uL (1100-4500); Lymphocytes Percent Auto 12.2 % (25-40); Mean Corpuscular HGB Conc 35.3 % (30-36); Mean Corpuscular Hemoglobin 31.9 PG (26-34); Mean Corpuscular Volume 90.5 fL (80-100); Monocytes Absolute Auto 800 /uL (0-900); Monocytes Percent Auto 7.3 % (3-14); Neutrophils Absolute Auto 8100 /uL (1500-7000); Neutrophils Percent Auto 78.2 % (50-75); Platelet Count 344 X10^3/uL (150-400); Red Blood Cell Count 4.13 X10^6/uL (4.5-5.9); Red Cell Distribution Width 15.5 % (11.6-14.8); White Blood Cell Count 10.4 X10^3/uL (4.5-11.0)
[2023-10-20 21:53] LABS: Alanine Aminotransferase 39 IU/L (<50); Albumin 4.3 g/dL (3.5-5.0); Albumin Globulin Ratio 1.7 (1.0-2.8); Alkaline Phosphatase 62 U/L (38-126); Aspartate Aminotransferase 92 IU/L (17-59); BUN Creatinine Ratio 9.8 (6-22); Bilirubin Total 0.5 mg/dL (0.2-1.3); Blood Urea Nitrogen 6 mg/dL (9-20); Calcium 8.9 mg/dL (8.4-10.2); Carbon Dioxide 24 mmol/L (22-32); Chloride 90 mmol/L (98-107); Creatine Kinase 321 U/L (55-170); Estimated Glomerular Filt Rate > 60 mL/min (>60); Ethanol (ETOH) 128 mg/dL; Globulin 2.6 g/dL (1.7-4.1); Glucose 102 mg/dL (80-110); HEMOLYSIS < 15 (0-50); Potassium 3.9 mmol/L (3.4-5.1); Sodium 126 mmol/L (137-145); Total Protein 6.9 g/dL (6.3-8.2)
[2023-10-20 22:04] LABS: Troponin I < 0.012 ng/mL (0.01-0.034)
--- NOTE | 2023-10-20 22:21 | EKG_ITS ---
[address] [address] Test Date: 2023-10-20 Pat Name: Russell Gordon Department: [facility] Room: Gender: Male Survey Technologist: : 1960 Requested By: Order Number: [id number] Reading MD: Mohinder Espinoza Measurements Intervals [place] Rate: 76 P: 41 CA: 192 QRS: 14 QRSD: 84 T: 46 QT: 396 QTc: 445 Interpretive Statements Normal sinus rhythm Septal infarct , age undetermined Electronically Signed On 10-21-2023 15:29:02 PDT by Mohinder Espinoza
== END 2023-10-20 23:12 | disposition home or self-care (01) ==
PROVIDERS: Emergency Provider Emergency Medicine
DX: S52.611A Displaced fracture of right ulna styloid process, initial encounter for closed fracture (principal); S01.111A Laceration without foreign body of right eyelid and periocular area, initial encounter; F10.129 Alcohol abuse with intoxication, unspecified; Y90.6 Blood alcohol level of 120-199 mg/100 ml; W10.9XXA Fall (on) (from) unspecified stairs and steps, initial encounter
CPT/HCPCS: 12011; 29125; 70450; 72125; 73110; 80053; 80320; 82550; 84484; 85025; 93005; 96361; 96365; 99284; 99285